=== PATIENT | female | born 1955 | race Caucasian/White ===

== ENCOUNTER → 2020-09-29 16:18 | Outpatient (CLI) | payer BC, SELFPAY | DX: U07.1 COVID-19 (principal); R06.02 Shortness of breath | CPT/HCPCS: 85379 ==

== ENCOUNTER 2020-09-29 18:36 | Emergency (ER) | payer BC, SELFPAY ==
[2020-09-29 18:38] VITALS: BP 123/84; PULSE 109; RESP 16; TEMP 36.3; O2SAT 95; BMI 30.2
--- NOTE | 2020-09-29 19:04 | EKG12_ITS ---
Test Reason : SOB Blood Pressure : / mmHG Vent. Rate : 099 BPM Atrial Rate : 099 BPM P-R Int : 154 ms QRS Dur : 142 ms QT Int : 388 ms P-R-T Axes : 055 -29 117 degrees QTc Int : 497 ms Normal sinus rhythm Left bundle branch block Abnormal ECG Confirmed by SHAKIRA EATON, FLACO ([id number]), fashion editor AYAD GIBBONS ([id number]) on 10/05/2020 1:12:17 PM Referred By: MIN/CONSTANCE Confirmed By:FLACO ROSENBERG MD
[2020-09-29 19:10] VITALS: O2SAT 96
--- NOTE | 2020-09-29 19:10 | RAD_ITS ---
INDICATION: SOB EXAMINATION/TECHNIQUE: X-RAY - XR Chest 1 View COMPARISON: None. FINDINGS: The lungs are clear. The cardiomediastinal silhouette is unremarkable. Elevation of the left hemidiaphragm. No pleural effusion or pneumothorax. No acute osseous abnormalities. Bilateral breast implants. RAD/Chest 1 View (Portable) IMPRESSION: No acute radiographic abnormalities. Electronically Signed: Ronny Gordon MD at 19:52 EDT Tel , Service support ,
[2020-09-29 19:28] VITALS: RESP 16
[2020-09-29 20:32] LABS: Absolute Lymphocyte Count 2.85 X10^3/uL (0.83-4.51); Absolute Neutrophil Count 6.1 X10^3/uL (2.0-7.7); Basophil# 0.05 X10^3/uL; Basophil% 0.5 % (0-1); Eosinophil# 0.14 X10^3/uL; Eosinophils% 1.4 % (0-5); Hematocrit 43.6 % (37-47); Hemoglobin 14.5 g/dL (12.0-15.0); Lymphocyte # 2.85 X10^3/ul (0.83-4.51); Mean Corp Hgb Conc 33.3 g/dL (32-36); Mean Corpuscular Hgb 31.2 pg (27.0-32.0); Mean Corpuscular Volume 93.8 fL (81-99); Mean Platelet Vol. 9.6 fl (6.2-12.0); Monocyte# 0.66 X10^3/uL; Monocyte% 6.7 % (0-10); NRBC Flagged by Analyzer 0 % (0-5); Neutrophil # 6.07 X10^3/uL (2.7-7.7); Neutrophil % 61.8 % (47-70); Platelet Count 397 K/mm3 (150-450); RBC Distribution Width CV 13.9 % (11.6-14.6); RBC Distribution Width SD 47.2 fl (35.1-43.9); Red Blood Count 4.65 M/mm3 (4.2-5.4); White Blood Count 9.8 K/mm3 (4.4-11.0)
--- NOTE | 2020-09-29 20:36 | ED.VIS.DYS ---
HPI History of Present Illness Chief Complaint: Shortness of Breath Informant: patient Onset/Context/Timing Onset: Month(s) (several) Context: - (random occurences; since Pfizer covid vaccine series in May) Timing: Intermittent and Lasts (usually minutes) Current Severity: Mild Maximum Severity: Moderate Worsened by: Nothing Relieved by: Nothing Associated Symptoms Negative for cough Chest Pain: Positive for Tightness (intermittent) Narrative Narrative: Patient had Covid last year in January, she then had the vaccine in May. She did not have dyspnea in between those but starting a couple weeks after the second vaccine, she started having some shortness of breath and chest tightness intermittently. She saw her electro mechanical assembler, she previously had a mild cardiomyopathy with an ejection fraction in the 50-55% range after having a catheterization preoperatively showing normal coronaries after she failed a stress test; she had a more recent echocardiogram showing that her ejection fraction was down into the 35-40% range. She had a follow-up appointment with pulmonology at [facility] today for these symptoms prior to initiating cardiac rehab clinic, they did a chest x-ray that was unremarkable and a D-dimer that was elevated even when corrected for age. Therefore she was sent here for CT angiography of the chest to rule out pulmonary embolus, since they were unable to get one stat. She is not anticoagulated. No history of blood clots that she knows of even with Covid. Her symptoms are intermittent. Sometimes she gets brief chest tightness with dyspnea with light activity, sometimes with exertion, other times she can walk or run on a treadmill without any symptoms. She also has times when she has the symptoms completely randomly while at rest, starting suddenly and associated with palpitations that sometimes feels like skipping and sometimes racing. She denies ever having a syncopal or near syncopal episode with this. She has not done any Holter or event monitors in the last year. No known dysrhythmia history. [facility] Medical History Back ache Left bundle branch block Low left ventricular ejection fraction Home Medications alprazolam 0.5 mg PO DAILY 09/29/20 [History Last Taken Unknown] calcium 1,500 mg PO DAILY 09/29/20 [History Last Taken Unknown] chlorthalidone 25 mg PO DAILY 09/29/20 [History Last Taken Unknown] cholecalciferol (vitamin D3) [Vitamin D3] 1,000 PO DAILY 09/29/20 [History Last Taken Unknown] estradiol 2 mg PO DAILY 09/29/20 [History Last Taken Unknown] famotidine [Pepcid] 40 mg PO DAILY 09/29/20 [History Last Taken Unknown] fexofenadine [Georgie] 30 mg PO PRN PRN 09/29/20 [History Last Taken Unknown] fluticasone furoate 50 mcg INHALATION DAILY 09/29/20 [History Last Taken Unknown] guar gum-calcium carbonate [Benefiber Plus Calcium (guar)] tab 09/29/20 [History Last Taken Unknown] omeprazole 40 mg PO DAILY 09/29/20 [History Last Taken Unknown] potassium mg PO DAILY 09/29/20 [History Last Taken Unknown] potassium chloride [Klor-Con M20] 40 meq PO BID 14 Days #56 tablet 09/29/20 [Rx Last Taken Unknown] vitamin X23-slgym acid 1 tab PO DAILY 09/29/20 [History Last Taken Unknown] Allergy/AdvReac Type Severity Reaction Status Date / Time BETA BLOCKERS Allergy Other Uncoded 09/29/20 18:38 NARCOTICS Allergy Other Uncoded 09/29/20 18:38 Social History Smoking Status: Never smoker ROS ROS ED Constitutional Constitutional ED: Denies chills or fever(s) Eyes Eyes: Denies change in vision or diplopia ENT ENT ED: Denies rhinorrhea or sore throat Cardiovascular Cardiovascular: Reports as per HPI, chest pain and leg edema; Denies lightheadedness or palpitations Respiratory/Chest Respiratory/Chest: Reports as per HPI and dyspnea; Denies cough Gastrointestinal Gastrointestinal: Denies abdominal pain, diarrhea, nausea or vomiting Genitourinary Genitourinary ED: Denies dysuria or hematuria Musculoskeletal Musculoskeletal: Denies back pain or neck pain Integumentary Denies abscess or rash Neurologic Neurologic: Denies headache(s), paresthesias or weakness Psychiatric Psychiatric: Denies anxiety or suicidal thoughts EXAM Physical Exam Const Vital Signs: 09/29/20 18:38 09/29/20 19:10 09/29/20 19:28 Temperature 97.4 F L Temperature Source Temporal Pulse Rate 109 H Respiratory Rate 16 16 Respiratory Effort Normal Blood Pressure 123/84 H Blood Pressure Mean 97 Pulse Ox 95 96 Oxygen Delivery Method Room Air Room Air Positive well nourished and well developed General Appearance ED: well developed and NAD HEENT Reports moist mucous membranes normocephalic and atraumatic Eyes PERRL and EOMs intact bilaterally Neck full ROM and supple Resp normal respiratory effort and clear to auscultation bilaterally Cardio regular rate, regular rhythm and no murmurs Rate: Negative for tachycardic GI non-tender and non-distended Auscultation: normoactive bowel sounds Palpation: soft Back/Spine no CVA tenderness General Back: other FROM Extremity normal to inspection and no calf tenderness General Extremety ED: Yes edema; Negative for pulses abnormal or tenderness General Extremity: edema bilateral lower extremity Details: mild (symmetric); Negative for pulses abnormal Neuro oriented x3, CN's II-XII intact bilaterally and no sensory deficits noted Sensorium / Orientation: awake and alert Motor Exam: strength 5/5 throughout Skin no rashes or lesions noted and no wounds MDM MDM MDM Narrative Medical decision making narrative: Labs, EKG, troponin, chest x-ray were obtained in addition to CT angiography of the chest. It is normal showing no evidence of a pulmonary embolus or anything else acute. Patient is reassured, I think she is stable to be discharged home, I did give her a dose of potassium, just oral potassium as well as a prescription for more since she did not want to wait for an infusion for potassium of 2.9. At this time I think she is safe to do cardiac rehab, I think she is to follow-up with her electro mechanical assembler as an outpatient. With history she is providing, it may be helpful to have a Holter or event monitor, documenting what is happening during some of her symptoms as they sound intermittent like she may be having ectopy or dysrhythmias. This could be related to her cardiomyopathy, but not necessarily that her cardiomyopathy is causing her symptoms directly especially if she is running on a treadmill without symptoms oftentimes. I discussed all this with them, they are comfortable with this plan, and also advised to touch base with pulmonology here where she was today. Lab Data Attestation: I reviewed the patient's lab results. Labs: Laboratory Results - last 24 hr 09/29/20 09/29/20 19:15 19:15 WBC 9.8 RBC 4.65 Hgb 14.5 Hct 43.6 MCV 93.8 MCH 31.2 MCHC 33.3 RDW Std Deviation 47.2 H RDW Coeff of Parris 13.9 Plt Count 397 MPV 9.6 Immature Gran % (Auto) 0.600 Neut % (Auto) 61.8 Lymph % (Auto) 29.0 Lamb % (Auto) 6.7 Eos % (Auto) 1.4 Baso % (Auto) 0.5 Absolute Neuts (auto) 6.1 Absolute Lymphs (auto) 2.85 Nucleated RBC % 0 Sodium 139 Potassium 2.9 L Chloride 100 Carbon Dioxide 31.0 Anion Gap 8 BUN 14 Creatinine 1.05 H Estim Creat Clear Calc 52.64 Est GFR (MDRD) Af Amer 68 Est GFR (MDRD) Non-Af 56 L BUN/Creatinine Ratio 13.3 Glucose 114 H Calcium 8.9 Troponin I High Sens 7.7 Radiography Chest X-Ray - ED: 1 View, Read by ED Physician, Normal and No Acute Disease Diagnostic Testing: Radiology Impression Chest X-Ray 09/29/20 19:10 IMPRESSION: No acute radiographic abnormalities. Electronically Signed: Ronny Gordon MD at 19:52 EDT Tel , Service support , Chest CTA 09/29/20 20:57 IMPRESSION: Normal CTA chest examination, without a demonstrated pulmonary embolism or arterial dissection. Electronically Signed: Mukul Jimenez DO at 21:45 EDT Tel [phone], Service support , EKG Initial EKG: Attestation: I personally reviewed and interpreted this EKG as follows: Interpretation: Sinus Rhythm, No Acute Injury Pattern and LBBB Prior EKG tracings: not available for review Prior: Unchanged (Compared with patient's prior left bundle branch block by her history/knowledge of already having it) Discharge Plan Triage Chief Complaint: Shortness of Breath ED Provider: Montnaa Suggs Dx/Rx/DC Orders Clinical Impression: Intermittent chest pain, Palpitations, Dyspnea, unspecified, Cardiomyopathy, Hypokalemia Instructions: ED Chest Pain, Uncertain Cause, ED Hypokalemia, ED Palpitations Prescriptions: New potassium chloride [Klor-Con M20] 20 mEq tablet,ER particles/crystals 40 meq PO BID 14 Days Qty: 56 RF: 0 No Action famotidine [Pepcid] 40 mg Tablet 40 mg PO DAILY RF: 0 calcium 500 mg Tablet 1,500 mg PO DAILY RF: 0 chlorthalidone 25 mg Tablet 25 mg PO DAILY RF: 0 omeprazole 40 mg Capsule,Delayed Release(Dr/Ec) 40 mg PO DAILY RF: 0 alprazolam 0.5 mg Tablet 0.5 mg PO DAILY RF: 0 Georgie 30 mg Tablet 30 mg PO PRN PRN (Reason: Allergic Reaction) RF: 0 estradiol 2 mg Tablet 2 mg PO DAILY RF: 0 potassium 20 mg Tablet,Chewable PO DAILY RF: 0 Benefiber Plus Calcium (guar) 100 mg Tablet,Chewable RF: 0 cholecalciferol (vitamin D3) [Vitamin D3] 25 mcg (1,000 unit) Tablet,Chewable 1,000 PO DAILY RF: 0 vitamin Q41-oylvw acid 500-400 mcg Tablet 1 tab PO DAILY RF: 0 fluticasone furoate 50 mcg/actuation Blister With Device 50 mcg INHALATION DAILY RF: 0 Primary Care Provider: [facility] Doctor,Out of Referrals: Oz Chapman MD [NON-STAFF] - [facility] Doctor,Out of [Primary Care Provider] - As soon as possible (your electro mechanical assembler and touch base with your pulmonary provider(s)) Disposition Disposition: Home, Self Care
[2020-09-29] MEDS: 0.9% Normal Saline 1,000 ML 999 ML IV (20:37)
[2020-09-29 20:47] LABS: Anion Gap 8 (5-15); BUN 14 mg/dL (7-18); BUN/Creat Ratio 13.3 RATIO (10-20); Calcium,Total 8.9 mg/dL (8.5-10.1); Chloride 100 mmol/L (98-107); Creatinine, Serum 1.05 mg/dL (0.55-1.02); EST Glomerular Filtration Rate 56 mL/min (>60); Est Glom Filt Rate - Afr Amer 68 mL/min (>60); Estimated Creatinine Clearance 52.64 ml/min; Glucose 114 mg/dL (74-106); Potassium 2.9 mmol/L (3.5-5.1); Sodium Level 139 mmol/L (136-145); Troponin-I HS 7.7 pg/mL (3.0-53.7)
--- NOTE | 2020-09-29 20:57 | CT_ITS ---
STUDY: CTA CHEST REASON FOR EXAM: Female, 65 years old. Shortness of breath. Chest pain. Elevated d-dimer. RADIATION DOSAGE (If Supplied By Facility): CTDIvol = ( 12.06 ) mGy, DLP = ( 456.37 ) mGycm TECHNIQUE: The examination was performed with the intravenous administration of IV 100mL [id number]-[id number]. Post-processing of the angiographic images was performed, with multiplanar reformation and 3D reconstruction. Individualized dose optimization techniques were used for this CT. COMPARISON: Chest, 09/29/2020. FINDINGS: Normal enhancement of the main pulmonary artery and right and left pulmonary arteries. Normal enhancement of the bilateral peripheral pulmonary arteries. There is no demonstrated pulmonary embolism. Normal thoracic aorta and visualized great vessels. There is no demonstrated aortic dissection. Normal heart and pericardium. Normal mediastinum. Normal hilar regions. Normal visualized trachea and bronchi. The lungs are well expanded. Normal pulmonary parenchyma. Normal pleura. There are intact bilateral breast implants with peripheral calcifications. The chest wall is otherwise unremarkable. Mild degenerative changes of the thoracic spine. Normal visualized upper abdomen. CT/CTA Chest W/WO Contrast IMPRESSION: Normal CTA chest examination, without a demonstrated pulmonary embolism or arterial dissection. Electronically Signed: Mukul Jimenez DO at 21:45 EDT Tel [phone], Service support ,
[2020-09-29] MEDS: Potassium Chloride Oral Tablet 20 MEQ 40 MEQ PO (22:42)
[2020-09-29 22:56] VITALS: BP 122/58; PULSE 83; RESP 16
== END 2020-09-29 22:56 | disposition home or self-care (01) ==
PROVIDERS: Emergency Provider Emergency Medicine
DX: R06.02 Shortness of breath (principal); R07.89 Other chest pain; R00.2 Palpitations; I42.9 Cardiomyopathy, unspecified; E87.6 Hypokalemia; Z79.899 Other long term (current) drug therapy
CPT/HCPCS: 71045; 71275; 80048; 84484; 85025; 93005; 94760; 96360; 96361; 99283; J7030; Q9967; A4216